=== PATIENT | male | born 1995 ===

== ENCOUNTER 2020-03-23 08:29 | Emergency (ER) | payer BC ==
[~2020-03-23] VITALS: Ht 185.4 cm; Wt 77.1 kg
== END 2020-03-23 09:33 | disposition home or self-care (01) ==
LOC: ER 08:29
DX: R60.0 Localized edema (principal)

== ENCOUNTER 2020-04-05 | Outpatient (CLI) | payer BC | END 2020-04-05 00:01 | disposition home or self-care (01) | LOC: LAB → PPH VACUNA → LAB 00:01 | DX: Z23 Encounter for immunization (principal) ==